=== PATIENT | female | born 1965 | race Caucasian/White ===

== ENCOUNTER 2017-01-29 13:58 | Emergency (ER) | payer OTHER ==
[~2017-01-29] VITALS: Ht 170.2 cm; Wt 95.0 kg
[~2017-01-29 13:58] MED LIST: ASCA500 PO; CHOL100010 PO; CLON1TAB3 PO; CLTP PO; CYAN3INJ IM; LEVO200T28 PO; MULT-506 PO; PRLSR20 PO; gaviscon PO
[2017-01-29 14:00] VITALS: TEMP 36.7; Ht 170.2 cm; Wt 95.0 kg
[2017-01-29 14:47] LABS: URINE APPEARANCE CLOUDY (CLEAR); URINE BILIRUBIN NEG (NEG); URINE COLOR ORANGE; URINE EPITHELIAL CELL AUTO >30 /lpf (0-5); URINE NITRITE NEG (NEG); URINE PH 5.5 (4.5-7.5); URINE SPECIFIC GRAVITY 1.025 (1.000-1.030); UROBILINOGEN NEG (NEG); ZZUR CULT IF INDIC CLEAN CATCH YES
[2017-01-29 14:50] LABS: MANUAL MICROSCOPIC REQUIRED? NO; REVIEW REQ? NO
--- NOTE | 2017-01-29 14:53 | EMERGENCY ROOM VISIT NOTE ---
History First contact with patient: 14:04 Chief Complaint: ED VAG BLEEDING Stated Complaint: BLEEDING, LIGHT HEADED, CRAMPING History of Present Illness The patient is a 51 year old female who presents to the Emergency Room with complaints of vaginal bleeding. The patient reports that approximately 1.5 months ago, she had an episode of heavy vaginal bleeding and had to have an emergent D&C. She states that since then, she has had persistent vaginal bleeding ranging from spotting to moderate bleeding. She states that she sometimes passes a small brownish-black, and sometimes larger amounts of red blood with clots. She has been followed by [facility] in [place]. She states she has had her hormone levels checked and she is not menopausal. She states that they tried a trial of progesterone to stop the bleeding, but it did not help. She was seen there this week and scheduled for a total hysterectomy. She was to have an appointment today with neurology to clear her for surgery, as her primary care provider recently found a pituitary microadenoma. She states that this morning, she began to feel lightheaded and has had some left-sided cramping. She called her [facility] and they told her to go to the emergency department. She states she was seen at [facility] and they checked a hemoglobin which was normal. She states they told her there was nothing more they could do because she missed her neurology appointment. She did make a new appointment with neurology next week. She is scheduled for hysterectomy March 01. She reports a history of a prolapsed uterus and uterine fibroids. She is . She denies any history of bleeding disorders. She denies syncopal episodes, urinary symptoms, nausea or vomiting. Review of Systems A complete 10 point review of systems was reviewed with the patient with pertinent positives and negatives as per history of present illness. All else were negative. Social History Alcohol Use: none Marital Status: Occupation Status: employed Current/Historical Medications Scheduled Ascorbic Acid (Vitamin C *), 1,000 MG PO DAILY Buspirone Hcl (Buspar), 15 MG PO DAILY Calcium/Vitamin D (Caltrate 600 Plus *), 1 TAB PO DAILY Clonazepam (Klonopin), 1 MG PO BID PRN Ergocalciferol (Vitamin D 08582 Unit), 1 TAB PO WK Levetiracetam (Keppra), 500 MG PO BID Levothyroxine Sodium (Synthroid), 175 MCG PO QAM Multivitamin (Multivitamin), 1 TAB PO DAILY Omeprazole (Prilosec), 20 MG PO BID [Effexor], 1 CAP PO DAILY Physical Exam Vital Signs Date Time Temp Pulse Resp B/P (MAP) Pulse Ox O2 Delivery O2 Flow Rate FiO2 01/29/17 14:00 36.7 99 16 144/84 100 Room Air Physical Exam VITALS: Vitals are noted on the nurse's note and reviewed by myself. Vital signs stable. GENERAL: This is a 51-year-old female, in no acute distress, nondiaphoretic, well-developed well-nourished. HEART: Regular rate and rhythm without murmurs gallops or rubs. LUNGS: Clear to auscultation bilaterally without wheezes, rales or rhonchi. ABDOMEN: Positive bowel sounds x 4. Soft, mild tenderness in the left lower quadrant. No guarding or rebound tenderness. NEURO: Patient was alert and oriented to person place and time. Medical Decision & Procedures ER Provider Diagnostic Interpretation: PELVIC ULTRASOUND CLINICAL HISTORY: Left pelvic pain. Persistent bleeding since dilatation and curettage. COMPARISON STUDY: None. TECHNIQUE: Transabdominal and transvaginal sonography of the pelvis was performed. FINDINGS: The uterus measures 9.1 x 5.7 x 6.6 cm. Endometrium measures 6 mm in thickness. A 1.6 x 0.9 x 0.4 cm right uterine body mural lesion suggests a small fibroid. There is a 1.3 cm fundal fibroid. This is mural in location. The right ovary measures 4.6 x 1.4 x 2 cm and the left ovary measures 3.5 x 2 x 3.3 cm. The right ovary is normal. Color flow is identified within each ovary. A possible echogenic 1.4 cm x 1.2 x 1.9 cm left ovarian lesion is noted. IMPRESSION: 1. Endometrial thickness of 6 mm which could be correlated with menopausal status. 2. Two small mural fibroids measuring up to 1.6 cm. 3. Possible 1.9 cm echogenic left ovarian lesion. This is likely benign however a follow-up pelvic ultrasound in 6 weeks to ensure resolution is recommended. 4. No sonographic evidence of ovarian torsion. Laboratory Results 01/29/17 14:30 Red Blood Count 4.57, Mean Corpuscular Volume 91.9, Mean Corpuscular Hemoglobin 31.5, Mean Corpuscular Hemoglobin Concent 34.3, Mean Platelet Volume 9.4, Neutrophils (%) (Auto) 62.8, Lymphocytes (%) (Auto) 27.2, Monocytes (%) (Auto) 5.9, Eosinophils (%) (Auto) 3.5, Basophils (%) (Auto) 0.3, Neutrophils # (Auto) 3.94, Lymphocytes # (Auto) 1.71, Monocytes # (Auto) 0.37, Eosinophils # (Auto) 0.22, Basophils # (Auto) 0.02 01/29/17 14:30 Test 01/29/17 14:30 White Blood Count 6.28 K/uL (4.8-10.8) Red Blood Count 4.57 M/uL (4.2-5.4) Hemoglobin 14.4 g/dL (12.0-16.0) Hematocrit 42.0 % (37-47) Mean Corpuscular Volume 91.9 fL (80-100) Mean Corpuscular Hemoglobin 31.5 pg (25-34) Mean Corpuscular Hemoglobin Concent 34.3 g/dl (32-36) Platelet Count 233 K/uL (130-400) Mean Platelet Volume 9.4 fL (7.4-10.4) Neutrophils (%) (Auto) 62.8 % Lymphocytes (%) (Auto) 27.2 % Monocytes (%) (Auto) 5.9 % Eosinophils (%) (Auto) 3.5 % Basophils (%) (Auto) 0.3 % Neutrophils # (Auto) 3.94 K/uL (1.4-6.5) Lymphocytes # (Auto) 1.71 K/uL (1.2-3.4) Monocytes # (Auto) 0.37 K/uL (0.11-0.59) Eosinophils # (Auto) 0.22 K/uL (0-0.5) Basophils # (Auto) 0.02 K/uL (0-0.2) RDW Standard Deviation 43.6 fL (36.4-46.3) RDW Coefficient of Variation 13.1 % (11.5-14.5) Immature Granulocyte % (Auto) 0.3 % Immature Granulocyte # (Auto) 0.02 K/uL (0.00-0.02) Prothrombin Time 10.3 SECONDS (9.0-12.0) Prothromb Time International Ratio 1.0 (0.9-1.1) Activated Partial Thromboplast Time 24.5 SECONDS (21.0-31.0) Partial Thromboplastin Ratio 0.9 Urine Color ORANGE Urine Appearance CLOUDY (CLEAR) Urine pH 5.5 (4.5-7.5) Urine Specific [place] 1.025 (1.000-1.030) Urine Protein TRACE (NEG) Urine Glucose (UA) NEG (NEG) Urine Ketones TRACE (NEG) Urine Occult Blood 3+ (NEG) Urine Nitrite NEG (NEG) Urine Bilirubin NEG (NEG) Urine Urobilinogen NEG (NEG) Urine Leukocyte Esterase SMALL (NEG) Urine WBC (Auto) 10-30 /hpf (0-5) Urine RBC (Auto) >30 /hpf (0-4) Urine Hyaline Casts (Auto) 1-5 /lpf (0-5) Urine Epithelial Cells (Auto) >30 /lpf (0-5) Urine Bacteria (Auto) NEG (NEG) Urine Test NEG (NEG) Anion Gap 7.0 mmol/L (3-11) Est Creatinine Clear Calc Drug Dose 115.8 ml/min Estimated GFR () 117.4 Estimated GFR (Non- 101.3 BUN/Creatinine Ratio 25.3 (10-20) Calcium Level 9.0 mg/dl (8.5-10.1) Total Bilirubin 0.7 mg/dl (0.2-1) Aspartate Amino Transf (AST/SGOT) 18 U/L (15-37) Alanine Aminotransferase (ALT/SGPT) 27 U/L (12-78) Alkaline Phosphatase 84 U/L (45-117) Total Protein 7.7 gm/dl (6.4-8.2) Albumin 4.2 gm/dl (3.4-5.0) Globulin 3.5 gm/dl (2.5-4.0) Albumin/Globulin Ratio 1.2 (0.9-2) ED Course The patient was evaluated as above. Labs were drawn and IV access was obtained. Pelvic ultrasound was performed and read by radiology as above. Patient was reevaluated and findings were discussed. Discharge instructions were reviewed with the patient. The patient verbalized understanding of my assessment and treatment plan and was discharged home in good condition. Medical Decision Differential diagnosis includes menopause, uterine fibroids, malignancy, among others. The patient is a 51-year-old female who presents today complaining of vaginal bleeding. The patient has had persistent vaginal bleeding for the past one month. She has been followed by [facility] in [place]. She is scheduled for a hysterectomy in 1 month. She has tried a course of progesterone with no improvement. She was seen at [facility] and is upset because she feels nothing was done for her. Labs today revealed no anemia. PT and PTT are normal. Urinalysis was suggestive of contamination. Urine was negative. Pelvic ultrasound shows fibroids, 6 mm endometrial thickness and a left ovarian lesion. There is no evidence of torsion. I feel that the best course of treatment for the patient will be to follow-up with her [facility] as scheduled. She was given information for local [facility] and is more than welcome to make an appointment if she desires a second opinion. She was advised to return if she develops worsening bleeding or syncope. Based on the patient's presentation and work up, I feel the patient is stable for outpatient treatment. The patient was educated to return to the emergency department for any worsening of their current condition or new/concerning symptoms. She will follow up with [facility]. Medication Reconcilliation Current Medication List: was personally reviewed by me Blood Pressure Screening Patient's blood pressure: Normal blood pressure Impression Primary Impression: Abnormal vaginal bleeding Departure Information Dispostion Home / Self-Care Condition GOOD Referrals Hieu Torrez M.D. (PCP) Katie Raygoza MD Patient Instructions [facility] Additional Instructions Follow-up with [facility] as scheduled. You may contact [facility] for follow-up if you desire. Rest and drink plenty of fluids. Return to the emergency department with worsening bleeding, passing out, or any other new/concerning symptoms.
[2017-01-29 14:55] LABS: BASO % 0.3 %; BASO ABS # 0.02 K/uL (0-0.2); COMPLETE YES; EOS % 3.5 %; IG% 0.3 %; LYMPH % 27.2 %; LYMPH ABS # 1.71 K/uL (1.2-3.4); MEAN CELL VOLUME 91.9 fL (80-100); MEAN CORPUSCULAR HEMOGLOBIN 31.5 pg (25-34); MEAN CORPUSCULAR HGB CONC 34.3 g/dl (32-36); MEAN PLATELET VOLUME 9.4 fL (7.4-10.4); MONO % 5.9 %; NEUT % 62.8 %; PLATELET COUNT 233 K/uL (130-400); RED BLOOD COUNT 4.57 M/uL (4.2-5.4); WHITE BLOOD COUNT 6.28 K/uL (4.8-10.8)
[2017-01-29 15:01] LABS: PARTIAL THROMBOPLASTIN RATIO 0.9; PROTHROMBIN TIME (PATIENT) 10.3 SECONDS (9.0-12.0)
[2017-01-29 15:12] LABS: BUN/CREATININE RATIO 25.3 (10-20); CREATININE 0.68 mg/dl (0.60-1.20); POTASSIUM 3.5 mmol/L (3.5-5.1)
[2017-01-29 15:15] LABS: ALB/GLOB RATIO 1.2 (0.9-2)
[2017-01-29 15:45] VITALS: BP 137/87; PULSE 74; O2SAT 99
--- NOTE | 2017-01-29 16:04 | DIAGNOSTIC IMAGING REPORT ---
PELVIC ULTRASOUND CLINICAL HISTORY: Left pelvic pain. Persistent bleeding since dilatation and curettage. COMPARISON STUDY: None. TECHNIQUE: Transabdominal and transvaginal sonography of the pelvis was performed. FINDINGS: The uterus measures 9.1 x 5.7 x 6.6 cm. Endometrium measures 6 mm in thickness. A 1.6 x 0.9 x 0.4 cm right uterine body mural lesion suggests a small fibroid. There is a 1.3 cm fundal fibroid. This is mural in location. The right ovary measures 4.6 x 1.4 x 2 cm and the left ovary measures 3.5 x 2 x 3.3 cm. The right ovary is normal. Color flow is identified within each ovary. A possible echogenic 1.4 cm x 1.2 x 1.9 cm left ovarian lesion is noted. IMPRESSION: 1. Endometrial thickness of 6 mm which could be correlated with menopausal status. 2. Two small mural fibroids measuring up to 1.6 cm. 3. Possible 1.9 cm echogenic left ovarian lesion. This is likely benign however a follow-up pelvic ultrasound in 6 weeks to ensure resolution is recommended. 4. No sonographic evidence of ovarian torsion. Electronically signed by: Yunior Dotson M.D. 01/29/2017 4:03 PM Dictated Date/Time: 01/29/2017 3:59 PM
[2017-01-29] MEDS ORDERED: SYN175 PO (16:26)
[2017-01-29] MEDS ORDERED: ERGO500011 PO (16:26)
[2017-01-29] MEDS ORDERED: EFFEXOR PO (16:28)
[2017-01-29] MEDS ORDERED: BUSP15TA70 PO (16:28)
[2017-01-29] MEDS ORDERED: LEVE500T13 PO (16:28)
== END 2017-01-29 16:55 | disposition home or self-care (01) ==
LOC: C.EDB 13:59 → C.EDC 16:55
DX: N93.9 Abnormal uterine and vaginal bleeding, unspecified (principal)